=== PATIENT | female | born 2005 | race African-American/Black ===

== ENCOUNTER 2025-02-27 05:42 | Emergency (ER) | payer SELFPAY ==
[2025-02-27] MEDS ORDERED: ACETAMINOPHEN 500 MG TAB ONE (06:15)
[2025-02-27] MEDS ORDERED: CEFTRIAXONE 1000 MG/VIAL ONE (06:15)
[2025-02-27] MEDS ORDERED: ONDANSETRON 4 MG/2 ML VIAL ONE (06:15)
[2025-02-27] MEDS ORDERED: KETOROLAC 30 MG/ML INJ ONE (06:16)
[2025-02-27] MEDS ORDERED: NA CHLORIDE 0.9% 500 ML ONE (06:16)
[2025-02-27] MEDS ORDERED: NA CHLORIDE 0.9% 50 ML ONE (06:16)
[2025-02-27 06:18] LABS: Absolute Eosinophils 0.1 K/uL (0-0.5); Absolute Lymphocytes (CBC) 1.9 K/uL (0.7-4.9); Absolute Monocytes 0.9 K/uL (0.1-1.3); Absolute Neutrophil 6.4 K/uL (1.8-8.0); Basophils % 0.4 % (0-1.3); Hemoglobin 12.2 g/dL (12.0-15.0); Lymphocytes % 20.4 % (15.3-44.8); MCH 26.6 pg (27.0-35.0); MCV 80.7 fL (80-100); MPV 7.6 fL (7.6-11.3); Monocytes % 10.1 % (3.3-12.3); Neutrophils % 68.1 % (41.7-73.7); Nucleated Red Blood Cells % 0.1 % (0-0); Platelets 301 thou/uL (152-406); RBC Red Blood Cell Count 4.59 M/uL (3.86-4.86); Red Cell Distribution Width 14.7 % (12.1-15.2)
[2025-02-27 06:25] LABS: Specific Gravity > 1.030 (1.005-1.030)
[2025-02-27 06:39] LABS: ALT/SGPT 16 U/L (13-56); AST/SGOT 12 U/L (15-37); Albumin/Globulin Ratio 0.8 (1.1-1.8); Alkaline Phosphatase 105 U/L (45-117); Anion Gap 6.5 mEq/L (5.0-15.0); BUN Blood Urea Nitrogen 10 mg/dL (7-18); Bicarbonate 27 mEq/L (21-32); Globulin 3.9 g/dL (2.3-3.5); Glomerular Filtration Rate 111 ml/min (=/>90); Glucose Level 97 mg/dL (74-106); Potassium 3.5 mEq/L (3.5-5.1); Protein, Total 6.9 g/dL (6.4-8.2); Sodium Level 139 mEq/L (136-145)
[2025-02-27 06:40] LABS: Bilirubin Total < 0.2 mg/dL (0.2-1.0)
--- NOTE | 2025-02-27 07:05 | ER ---
Nurse's Notes [facility] Name: Benjamin Grsos Age: 19 yrs Sex: Female : 2005 Arrival Date: 02/27/2025 Time: 05:42 Bed 19 Private MD: Diagnosis: Acute tonsillitis, unspecified;Acute nausea and vomiting Presentation: 02/27 05:51 Chief complaint: Patient states: sore throat, dry cough \T\ painful to swallow that rg5 started yesterday. 05:51 Coronavirus screen: Client denies travel out of the [place] in the last 14 days. Ebola rg5 Screen: Patient negative for fever greater than or equal to 101.5 degrees Fahrenheit, and additional compatible Ebola Virus Disease symptoms Patient denies exposure to infectious person. Patient denies travel to an Ebola-affected area in the 21 days before illness onset. Initial Sepsis Screen: Does the patient meet any 2 criteria? No. Patient's initial sepsis screen is negative. Does the patient have a suspected source of infection? No. Patient's initial sepsis screen is negative. Risk Assessment: Do you want to hurt yourself or someone else? Patient reports no desire to harm self or others. Onset of symptoms was February 27, 2025. 05:51 Method Of Arrival: Ambulatory rg5 05:51 Acuity: EVONNE 3 rg5 Triage Assessment: 05:55 General: Appears in no apparent distress. Behavior is calm, cooperative, appropriate rg5 for age. Pain: Complains of pain in throat. EENT: Throat is reddened. Neuro: Level of Consciousness is awake, alert, obeys commands, Oriented to person, place, time, situation. Cardiovascular: Denies chest pain, Patient's skin is warm and dry. Respiratory: Airway is patent Breath sounds are clear. GI: No signs and/or symptoms were reported involving the gastrointestinal system. GI: Abdomen is flat, Reports vomiting. : No signs and/or symptoms were reported regarding the genitourinary system. Derm: Skin is intact, Skin is dry, Skin is normal. Musculoskeletal: Circulation, motion, and sensation intact. Range of motion: intact in all extremities. 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 - Social history:: Patient/guardian denies using alcohol, street drugs, tobacco products, Smoking status: Patient denies any tobacco usage or history of. - Infectious Disease History:: Denies. - Family history:: not pertinent. Screenin:27 [facility] ED Fall Risk Assessment (Adult) History of falling in the last 3 months, db including since admission No falls in past 3 months (0 pts) Confusion or Disorientation No (0 pts) Intoxicated or Sedated No (0 pts) Impaired Gait No (0 pts) Mobility Assist Device Used No (0 pt) Altered Elimination No (0 pt) Score/Fall Risk Level 0 - 2 = Low Risk Oriented to surroundings, Maintained a safe environment. Abuse screen: Denies threats or abuse. Denies injuries from another. Nutritional screening: No deficits noted. Tuberculosis screening: No symptoms or risk factors identified. Assessment: 06:44 Reassessment: see triage assessment. Pain: Complains of pain in fthroat Pain currently rg5 is 4 out of 10 on a pain scale. Quality of pain is described as aching. Respiratory: Airway is patent Respiratory effort is even, unlabored, Breath sounds are clear. 07:27 Reassessment: Patient appears in no apparent distress at this time. Patient and/or db family updated on plan of care and expected duration. Pain level reassessed. Patient is alert, oriented x 3, equal unlabored respirations, skin warm/dry/pink. Patient states feeling better. Patient states symptoms have improved. General: Appears in no apparent distress. comfortable, Behavior is calm, cooperative. Neuro: Level of Consciousness is awake, alert, obeys commands, Oriented to person, place, time, situation. Vital Signs: 05:55 BP 108 / 67; Pulse 80; Resp 17; Temp 98.4; Pulse Ox 100% on R/A; Weight 43.09 kg; rg5 Height 5 ft. 4 in. ; Pain 4/10; 07:15 BP 116 / 69; Pulse 78; Resp 16; Pulse Ox 100% on R/A; db 05:55 Body Mass Index 16.31 (43.09 kg, 162.56 cm) rg5 05:55 Pain Scale: Adult rg5 [place] Coma Score: 06:20 Eye Response: spontaneous(4). Motor Response: obeys commands(6). Verbal Response: sp4 oriented(5). Total: 15. ED Course: 05:49 Patient arrived in ED. gm2 05:55 Arm band placed on. rg5 05:59 Florin Wilson MD is Attending Physician. sp4 06:00 Inserted saline lock: 20 gauge in right antecubital area, using aseptic technique. rg5 Blood collected. Flushed with 10 mL NS. 06:11 William Birmingham, MARIA R is Primary Nurse. rg5 06:40 Triage completed. rg5 07:27 Patient has correct armband on for positive identification. Bed in low position. Call db light in reach. Side rails up X 1. Provided Education on: DISCHARGE, PRESCRIPTIONS AND FOLLOWUP. Pulse ox on. NIBP on. Pillow given. 07:27 No provider procedures requiring assistance completed. IV discontinued, intact, db bleeding controlled, No redness/swelling at site. Administered Medications: 06:33 Drug: NS 0.9% IV 500 ml 500 ml IV at 1 bolus once; to be given as a bolus over 30 rg5 minutes Volume: 500 ml; Route: IV; Rate: 1 bolus; Site: right antecubital; 07:29 Follow up: Response: No adverse reaction; IV Status: Completed infusion; IV Intake: db 1000ml 06:33 Drug: Rocephin - Rocephin (cefTRIAXone) IVPB 1 grams IVPB once over 30 mins; (mix in 50 rg5 mL NS) Route: IVPB; Infused Over: 30 mins; Site: right antecubital; 07:29 Follow up: Response: No adverse reaction; IV Status: Completed infusion; IV Intake: 50mldb 06:33 Drug: Ketorolac IVP 15 mg IVP once Route: IVP; Site: right antecubital; rg5 07:29 Follow up: Response: No adverse reaction; Pain is decreased db 06:33 Drug: Ondansetron IVP 4 mg IVP once; over 2 minutes Route: IVP; Site: right antecubital;rg5 07:29 Follow up: Response: No adverse reaction db 06:46 Drug: Acetaminophen PO 1000 mg PO once Route: PO; rg5 07:29 Follow up: Response: No adverse reaction; Pain is decreased db Medication: 06:44 VIS not applicable for this client. rg5 Intake: 07:29 IV: 1000ml; Total: 1000ml. db 07:29 IV: 50ml; Total: 1050ml. db Outcome: 07:04 Discharge ordered by MD. woods 07:27 Discharged to home ambulatory, with family, db 07:27 Condition: stable 07:27 Discharge instructions given to patient, family, Instructed on discharge instructions, follow up and referral plans. Prescriptions given X 3, 07:30 Patient left the ED. db Signatures: Sudha Gaona, RN RN Florin Noguera MD MD sp4 Pamela Gross gm2 William Birmingham, RN RN rg5
--- NOTE | 2025-02-27 07:05 | EDPHYS ---
Physician Documentation [facility] Name: Benjamin Gross Age: 19 yrs Sex: Female : 2005 Arrival Date: 02/27/2025 Time: 05:42 Bed 19 Private MD: ED Physician Florin Wilson HPI: 02/27 06:20 This 19 yrs old Black Female presents to ER via Unassigned with complaints of vomiting sp4 blood, Sore Throat, Cough, Weakness. 06:20 Patient presents with acute moderate to severe sore throat starting yesterday. She sp4 reported cough congestion and generalized weakness. Reported some vomiting with a little bit of blood. . 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 - Social history:: Patient/guardian denies using alcohol, street drugs, tobacco products, Smoking status: Patient denies any tobacco usage or history of. - Infectious Disease History:: Denies. - Family history:: not pertinent. ROS: 06:20 Constitutional: Negative for fever, chills, and weight loss, positive for sore throat, sp4 positive for vomiting, positive for cough, positive weakness 06:20 All other systems are negative, Exam: 06:20 Constitutional: This is a well developed, well nourished patient who is awake, alert, sp4 and in no acute distress. Head/Face: Normocephalic, atraumatic. Eyes: Pupils equal round and reactive to light, extra-ocular motions intact. Lids and lashes normal. Conjunctiva and sclera are not injected. Cornea within normal limits. Periorbital areas with no swelling, redness, or edema. ENT: Nares patent. No nasal discharge, no septal abnormalities noted. Tympanic membranes are normal and external auditory canals are clear. Oropharynx with moderate bilateral redness bilateral tonsillar swelling right more than left. No signs of abscess Neck: Trachea midline, no thyromegaly or masses palpated, and no cervical lymphadenopathy. Supple, full range of motion without nuchal rigidity, or vertebral point tenderness. Chest/axilla: Normal chest wall appearance and motion. Nontender with no deformity. No lesions are appreciated. Cardiovascular: Regular rate and rhythm with a normal S1 and S2. No gallops, murmurs, or rubs. Normal PMI, no JVD. No pulse deficits. Respiratory: Lungs have equal breath sounds bilaterally, clear to auscultation and percussion. No rales, rhonchi or wheezes noted. No increased work of breathing, no retractions or nasal flaring. Abdomen/GI: Soft, with normal bowel sounds. No distension or tympany. No guarding or rebound. No evidence of tenderness throughout. Back: No spinal tenderness. No costovertebral tenderness. Skin: Warm, dry with normal turgor. Normal color with no rashes, no lesions, and no evidence of cellulitis. MS/ Extremity: Pulses equal, no cyanosis. Neurovascular intact. Full, normal range of motion. Neuro: Awake and alert, GCS 15, oriented to person, place, time, and situation. Cranial nerves II-XII grossly intact. Motor strength 5/5 in all extremities. Sensory grossly intact. Psych: Awake, alert, with orientation to person, place and time. Behavior, mood, and affect are within normal limits Vital Signs: 05:55 BP 108 / 67; Pulse 80; Resp 17; Temp 98.4; Pulse Ox 100% on R/A; Weight 43.09 kg; rg5 Height 5 ft. 4 in. ; Pain 4/10; 07:15 BP 116 / 69; Pulse 78; Resp 16; Pulse Ox 100% on R/A; db 05:55 Body Mass Index 16.31 (43.09 kg, 162.56 cm) rg5 05:55 Pain Scale: Adult rg5 [place] Coma Score: 06:20 Eye Response: spontaneous(4). Motor Response: obeys commands(6). Verbal Response: sp4 oriented(5). Total: 15. MDM: 06:05 Medical Screening Exam initiated sp4 06:22 Differential diagnosis: apthous stomatitis, apthous ulcer, bronchitis, sp4 gingivostomatitis, mononucleosis, pharyngitis. Data reviewed: vital signs, nurses notes, lab test result(s). Consideration of Admission/Observation Escalation of care including admission/observation considered. 02/27 05:59 Order name: Test, Urine; Complete Time: 07:00 sp4 02/27 06:03 Order name: CBC with Diff; Complete Time: 07:00 sp4 02/27 06:03 Order name: CMP; Complete Time: 07:00 sp4 02/27 06:03 Order name: IV Saline Lock; Complete Time: 06:12 sp4 02/27 06:03 Order name: Labs collected and sent; Complete Time: 06:12 sp4 Administered Medications: 06:33 Drug: NS 0.9% IV 500 ml 500 ml IV at 1 bolus once; to be given as a bolus over 30 rg5 minutes Volume: 500 ml; Route: IV; Rate: 1 bolus; Site: right antecubital; 07:29 Follow up: Response: No adverse reaction; IV Status: Completed infusion; IV Intake: db 1000ml 06:33 Drug: Rocephin - Rocephin (cefTRIAXone) IVPB 1 grams IVPB once over 30 mins; (mix in 50 rg5 mL NS) Route: IVPB; Infused Over: 30 mins; Site: right antecubital; 07:29 Follow up: Response: No adverse reaction; IV Status: Completed infusion; IV Intake: 50mldb 06:33 Drug: Ketorolac IVP 15 mg IVP once Route: IVP; Site: right antecubital; rg5 07:29 Follow up: Response: No adverse reaction; Pain is decreased db 06:33 Drug: Ondansetron IVP 4 mg IVP once; over 2 minutes Route: IVP; Site: right antecubital;rg5 07:29 Follow up: Response: No adverse reaction db 06:46 Drug: Acetaminophen PO 1000 mg PO once Route: PO; rg5 07:29 Follow up: Response: No adverse reaction; Pain is decreased db Disposition Summary: 02/27/25 07:04 Discharge Ordered Problem: new sp4 Symptoms: have improved sp4 Condition: Stable sp4 Diagnosis - Acute tonsillitis, unspecified sp4 - Acute nausea and vomiting sp4 Followup: sp4 - With: Private Physician - When: 7 - 10 days - Reason: Recheck today's complaints Discharge Instructions: - Discharge Summary Sheet vc1 - Tonsillitis, [id number] sp4 Forms: - Work release form db - Patient Portal Instructions sp4 Prescriptions: - cefdinir 300 mg Oral capsule - take 2 capsule ORAL route daily for 10 days; 20 capsule; Refills: 0, Product sp4 Selection Permitted - Ibuprofen 600 mg Oral Tablet - take 1 tablet ORAL route every 6 hours As needed take with food; 30 tablet; sp4 Refills: 0, Product Selection Permitted - ondansetron 8 mg Oral Tablet,disintegrating - take 1 tablet ORAL route every 8 hours PRN nausea; 30 tablet; Refills: 0, sp4 Product Selection Permitted Signatures: Dispatcher [employer] Florin Brothers MD MD sp4 William Birmingham RN RN rg5 Sudha Gaona RN db
[2025-02-27 07:49] VITALS: TEMP 98.4; O2SAT 100
[2025-02-27 07:54] VITALS: BP 116/69
== END 2025-02-27 07:30 | disposition home or self-care (01) ==
LOC: ER 05:42
DX: J03.90 Acute tonsillitis, unspecified (principal); R05.9 Cough, unspecified
CPT/HCPCS: 36415; 80053; 81025; 85025; 96365; 96375; 99284; J0696; J2405; J7040